=== PATIENT | male | born 1990 | race Caucasian/White ===

== ENCOUNTER 2018-01-16 20:12 | Emergency (ER) | payer OTHER ==
[~2018-01-16] VITALS: Ht 177.8 cm; Wt 86.5 kg
[2018-01-16] MEDS ORDERED: morphine 4 MG/ML inj SYRINge IV ONE (20:40)
[2018-01-16] MEDS ORDERED: ondansetron/PF 4mg/2ml inj IV ONE (20:40)
[2018-01-16] MEDS ORDERED: iohexol 300mg/ml 100ml inj. ONE (20:43)
[2018-01-16] MEDS ORDERED: diazepam 5mg tablet PO ONE (20:45)
[2018-01-16] MEDS ORDERED: HYDROmorphone inj. 0.5 MG/0.5 ML DISP.SYRIN IV PRN (20:50)
[2018-01-16] MEDS ORDERED: METH500T PO (21:19)
[2018-01-16] MEDS ORDERED: ONDA4TAB9 SL (21:19)
[2018-01-16] MEDS ORDERED: HYDR-3965 PO (21:19)
[2018-01-16] MEDS ORDERED: VAL5T PO (21:19)
[2018-01-16 21:48] VITALS: BP 115/70
== END 2018-01-16 21:51 | disposition home or self-care (01) ==
LOC: ER 20:13
DX: S39.012A Strain of muscle, fascia and tendon of lower back, initial encounter (principal); S63.502A Unspecified sprain of left wrist, initial encounter; M62.830 Muscle spasm of back; Z79.899 Other long term (current) drug therapy; V29.9XXA Motorcycle rider (driver) (passenger) injured in unspecified traffic accident, initial encounter; Y93.89 Activity, other specified; Y92.89 Other specified places as the place of occurrence of the external cause; Y99.8 Other external cause status
CPT/HCPCS: 73110; 74177; 96374; 96375; 99284; J1170; J2270; J2405; J7030; Q9967

== ENCOUNTER 2018-02-10 12:29 | Emergency (ER) | payer OTHER ==
[~2018-02-10] VITALS: Ht 177.8 cm; Wt 85.0 kg
[~2018-02-10 12:29] MED LIST: CEPH-572 PO; HYDR-3965 PO; METH500T PO; ONDA4TAB9 SL; VAL5T PO
[2018-02-10 12:34] VITALS: BP 122/76
== END 2018-02-10 13:17 | disposition home or self-care (01) ==
LOC: ER 12:30
DX: Z48.00 Encounter for change or removal of nonsurgical wound dressing (principal)
CPT/HCPCS: 99282; A6255; A6449

== ENCOUNTER 2023-05-09 12:59 | Emergency (ER) | payer SELFPAY ==
[~2023-05-09] VITALS: Ht 177.8 cm; Wt 88.4 kg
[~2023-05-09 12:59] MED LIST changes: -CEPH-572 PO; -HYDR-3965 PO; -ONDA4TAB9 SL; -VAL5T PO
[2023-05-09 13:02] VITALS: BP 108/93; PULSE 105; RESP 18; TEMP 99.1; O2SAT 97
[2023-05-09] MEDS ORDERED: lidocaine 1%/epinephrine 1:100,000 inj. 50ml multi-dose vial IJ ONE (13:45)
[2023-05-09] MEDS ORDERED: CEPH-194 PO (14:27)
[2023-05-09] MEDS ORDERED: sulfamethoxazole/trimethoprim DS (800/160mg) tablet PO ONE (14:30)
[2023-05-09] MEDS ORDERED: cephalexin 250mg capsule PO STA (14:33)
[2023-05-09] MEDS ORDERED: cephalexin 250mg capsule PO ONE (14:35)
== END 2023-05-09 14:46 | disposition home or self-care (01) ==
LOC: ER 12:59
DX: L02.416 Cutaneous abscess of left lower limb (principal); Z79.2 Long term (current) use of antibiotics; Z79.899 Other long term (current) drug therapy
CPT/HCPCS: 10060; 99283; A6449